=== PATIENT | female | born 1970 | race African-American/Black ===

== ENCOUNTER → 2016-12-08 | Outpatient (CLI) | payer OTHER ==
[~2016-12-08] MED LIST: NAPROXEN500 M1 PO; NO MEDICATIONS; SKELAXIN PO
--- NOTE | ~2016-12-08 | US98 ---
[facility] A Service of [facility] RADIOLOGY TEXT RESULTS PATIENT: YUSUF BARRETT LOCATION: [facility] : 70 UNIT #: [id number] AGE: [address]: Lexus Green MD SEX: F ORDER DR: [id number] [facility] [address] [place], [place] [address] [id number] O MR#: [id number] Acc #: [id number] NAME: YUSUF BARRETT : 1970 SEX: F STUDY DATE/TIME: 12/08/2016 14:04 UNIT: [facility] ROOM: STUDY DESCRIPTION: US Pelvic Non-OB Complete Attending Physician: Lexus Green M.D. Referring Physician: Lexus Green M.D. Ordering Physician: Lexus Green M.D. Primary Care Physician: Lexus Green M.D. MEDICAL IMAGING REPORT This report is preliminary unless electronic signature is present EXAM Pelvic ultrasound INDICATION Irregular menses for the past 3 weeks. PROCEDURE Bower-scale and Doppler imaging of the pelvis via transabdominal and transvaginal approach. COMPARISON None FINDINGS Uterus is anteverted and measures 10.9 x 4.6 x 5.5 cm. Endometrium measures 7.0 mm in thickness. There is a fibroid exophytic from the anterior uterus that measures 2.6 x 2.3 x 2.5 cm. 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 The left ovary measures 2.0 x 2.4 x 2.6 cm. No free pelvic fluid. IMPRESSION 1. Exophytic fibroid from the anterior uterus measuring up to 2.6 cm. 2. Otherwise normal pelvic ultrasound for the patient's age. Physiologic changes in both ovaries. Dictated by... Dani Nelson M.D. THIS IS AN ELECTRONICALLY VERIFIED REPORT aDni Nelson M.D. at 12/10/2016 2:02 PM JESSICA/adriane [facility] A Service of [facility] RADIOLOGY TEXT RESULTS PATIENT: YUSUF BARRETT LOCATION: [facility] : 70 UNIT #: [id number] AGE: [address]: Lexus Green MD SEX: F ORDER DR: TD: 12/09/2016 13:11 JOB #: [id number] MEDICAL IMAGING REPORT Page 1 of 1 COPY
== END | disposition home or self-care (01) ==
LOC: CWCC 13:48
DX: N92.6 Irregular menstruation, unspecified (principal); R10.2 Pelvic and perineal pain; D25.9 Leiomyoma of uterus, unspecified
CPT/HCPCS: 76830; 76856